=== PATIENT | female | born 1960 | race Caucasian/White ===

== ENCOUNTER 2018-03-01 06:39 | Day surgery (SDC) | payer OTHER ==
[~2018-03-01 06:39] MED LIST: Buffered Lidocaine 0.9% SYRIN* 5 ML/SYR SYRINGE INTRADERM ONE; Famotidine IV* 10 MG/ML 2 ML (20 mg) IV ONE
[2018-03-01] MEDS ORDERED: Midazolam* 1 MG/ML 2 ML VIAL (2 MG) ONE (07:03)
[2018-03-01] MEDS ORDERED: fentaNYL* 50 MCG/ML 2 ML VIAL (100 MCG VIAL) ONE (07:03)
[2018-03-01] MEDS ORDERED: Propofol* 10 MG/ML 20 ML BTL IV PUSH ONE (07:03)
[2018-03-01] MEDS ORDERED: Bupivacaine 0.25% SDV* 30 ML ONE (07:14)
[2018-03-01] MEDS ORDERED: Naloxone* 0.4 MG/ML 1 ML VIAL IV PRN (08:14)
--- NOTE | 2018-03-01 08:14 | OP ---
Operative Report - Blank - Operative Report Date of Operation: 03/01/18 Note: DATE OF OPERATION: 03/01/18 - [facility] DATE OF : 1960 SURGEON: Julian Molina MD. TRUCK BENCH MECHANIC: SOLO Casper ANESTHESIOLOGIST: Dr. Merino. ANESTHESIA: Local MAC PRE-OP DIAGNOSIS: Left dequervains disease. POST-OP DIAGNOSIS: Left dequervains disease. OPERATIVE PROCEDURE: 1. Left first dorsal compartment tendon sheath release INDICATIONS: Camille has Dequervains disease that has recurred despite injections. We talked about treatment options and the patient wanted to proceed with surgical release. ESTIMATED BLOOD LOSS: 2 mL. COMPLICATIONS: None. FINDINGS: As expected. DESCRIPTION OF PROCEDURE: Camille was seen in the preoperative holding area. The correct side, site, and procedure were identified. We came back to the operating room. I infiltrated the operative area with 0.25% Marcaine. The arm was prepped and draped in the usual fashion. Time-out was performed. The arm was exsanguinated with the Esmarch and the tourniquet was inflated to 250 mmHg. I transverse incision over the first dorsal compartment tendon sheath. Full thickness flaps were bluntly raised off the tendon sheath and the radial sensory nerve was retracted. I then longitudinally incised the first dorsal compartment tendon sheath along its dorsal margin in line with the tendons. An accessory compartment was present. The septum was released and excised in its entirety. The tendons were completely freed. The tenosynovitis was excised. The skin was closed with 4-0 monocryl and steri-strips. The wound was dressed, tourniquet deflated, and the patient was taken to the recovery room in stable condition.
[2018-03-01 08:18] VITALS: BP 88/51
== END 2018-03-01 08:50 | disposition home or self-care (01) ==
LOC: OREAST 06:39
PROVIDERS: ATTEND Orthopaedic Surgery Hand Surgery
DX: M65.4 Radial styloid tenosynovitis [de Quervain] (principal); F41.8 Other specified anxiety disorders
CPT/HCPCS: J2250; J2704; J3010

== ENCOUNTER 2021-12-01 08:44 | Inpatient (IN) ==
[2021-12-01] MEDS ORDERED: Ondansetron 4 mg VIAL 2 MG/ML 2 ml VIAL IV ONE (09:00)
[2021-12-01] MEDS ORDERED: NS 0.9% 1000 ml BAG 1,000 ML IV ONE (09:00)
[2021-12-01 09:27] LABS: ABS Lymphocytes 0.6 10^3/ul (1.0-4.8); ABS Monocytes 0.3 10^3/ul (0-0.8); ABS Neutrophils 10.5 10^3/ul (1.5-7.7); Eosinophil % 0.1 %; Hematocrit 39 % (35-47); Hemoglobin 12.9 g/dL (12.0-16.0); Mean Corpuscular HGB Conc 33 g/dL (31-36); Mean Corpuscular Hemoglobin 30 pg (27-31); Mean Corpuscular Volume 91 fL (80-97); Mean Platelet Volume 8.8 fL (7.4-10.4); Platelet Count 272 10^3/uL (150-450); Red Blood Count 4.23 10^6 /uL (3.70-4.87); Red Cell Distribution Width 14 % (10-15); White Blood Count 11.4 10^3/uL (3.5-10.8)
[2021-12-01 09:47] LABS: ALT 8 U/L (7-52); Albumin 4.3 g/dL (3.2-5.2); Albumin/Globulin Ratio 1.9 (1-3); Alkaline Phosphatase 36 U/L (35-149); Blood Urea Nitrogen 10 mg/dL (6-24); CO2 Carbon Dioxide 23 mmol/L (22-32); Calcium 9.1 mg/dL (8.6-10.3); Chloride 100 mmol/L (101-111); Globulin 2.3 g/dL (2-4); Glucose 138 mg/dL (70-100); Lipase < 10 U/L (11.0-82.0); Sodium 133 mmol/L (135-145); Total Protein 6.6 g/dL (6.4-8.9); eGFR CKD-EPI 95.7 (>60)
[2021-12-01 10:25] LABS: AST 12 U/L (13-39); Anion Gap 10 mmol/L (2-11); Potassium 3.8 mmol/L (3.5-5.0)
[2021-12-01] MEDS ORDERED: Iohexol 300 (CONTRAST) 10 ML SDV IV ONE (11:11)
[2021-12-01] MEDS ORDERED: Morphine 4 MG/ML VIAL (1 ml) IV ONE (11:26)
[2021-12-01] MEDS ORDERED: Piperacillin/Tazobac ADVAN 3.375 GM in NS 0.9% 100 ml BAG 100 ML IV ONE (12:28)
[2021-12-01 12:53] LABS: Urine Appearance Cloudy; Urine Bilirubin Negative (Negative); Urine Blood 1+ (Negative); Urine Color Yellow; Urine Glucose Negative (Negative); Urine Ketones 1+ (Negative); Urine Nitrite Negative (Negative); Urine Protein Negative (Negative); Urine Specific Gravity 1.034 (1.002-1.030); Urine Urobilinogen Negative (Negative)
[2021-12-01 12:56] LABS: Urine Bacteria Absent (Absent); Urine Red Blood Cell 1+(3-5/hpf) (Absent); Urine Squamous Epithelial Cell Present (Absent); Urine White Blood Cell Trace(0-5/hpf) (Absent)
[2021-12-01] MEDS ORDERED: Bupivacaine 0.25% EPI 200,000 30 ML SDV ONE (14:48)
[2021-12-01] MEDS ORDERED: Rocuronium 50 mg VIAL 10 mg/ml 5 ml VIAL (50 mg) ONE (15:37)
[2021-12-01] MEDS ORDERED: Ondansetron 4 mg VIAL 2 MG/ML 2 ml VIAL ONE (15:37)
[2021-12-01] MEDS ORDERED: Propofol 10 MG/ML 20 ML BTL ONE (15:37)
[2021-12-01] MEDS ORDERED: fentaNYL 100 mcg/2 ml 50 MCG/ML VIAL ONE (15:37)
[2021-12-01] MEDS ORDERED: Metoclopramide 5 MG/ML VIAL (10 mg) ONE ×2 (15:37→15:40)
[2021-12-01] MEDS ORDERED: Midazolam 2 mg/2 ml VIAL 1 mg/ml 2 ml VIAL (2 mg) ONE (15:38)
[2021-12-01] MEDS ORDERED: EPHEDrine (Pressors) 50 MG/ML VIAL ONE (17:04)
[2021-12-01] MEDS ORDERED: Acetaminophen IV 1 GM/100ML 100 ML IV PRN (18:00)
[2021-12-01] MEDS ORDERED: D5W 1/2 NS KCl 20 meq 1000 ml 1,000 ML IV SCH (18:00)
[2021-12-01] MEDS ORDERED: HYDROmorphone 1 MG/1 ML SYRINGE IV SLOW PU PRN (18:01)
[2021-12-01] MEDS ORDERED: HYDROmorphone 0.5 MG/0.5 ML SYRINGE IV SLOW PU PRN (18:01)
[2021-12-01] MEDS: Piperacillin/Tazobac ADVAN 3.375 GM in NS 0.9% 100 ml BAG 100 ML IV SCH (20:07)
[2021-12-02] MEDS: Piperacillin/Tazobac ADVAN 3.375 GM in NS 0.9% 100 ml BAG 100 ML IV SCH ×2 (02:31→10:02)
[2021-12-02 08:52] VITALS: BP 93/56
== END 2021-12-02 12:50 | disposition home or self-care (01) | DRG 340 ==
LOC: ED 08:44 → OR 18:59 → SSU 19:00
PROVIDERS: ADMIT Surgery; ATTEND Surgery